=== PATIENT | male | born 1945 | race Hispanic/Latino ===

== ENCOUNTER 2024-08-24 20:50 | Observation (INO) | payer OTHER ==
[~2024-08-24] VITALS: Ht 175.3 cm; Wt 81.6 kg
[~2024-08-24 20:50] MED LIST: DUTA0.5C37 PO; GLIP5TAB15 PO; IBUP-1493 PO; LOPE2CAP PO; METF-446 PO; PRAV40TA3 PO; SOLI5TAB6 PO; TAMS-55 PO
[2024-08-24] MEDS ORDERED: NITROGLYCERIN 0.4 MG SL TAB SL PRN (21:00)
[2024-08-24 21:09] LABS: BASOPHILS # (AUTO) 0.07 K/uL (0.00-0.20); BASOPHILS % (AUTO) 0.9 % (0.0-5.0); EOSINOPHILS # (AUTO) 0.15 K/uL (0.00-0.70); EOSINOPHILS % (AUTO) 1.9 % (0.0-8.0); HEMATOCRIT 42.4 % (42-54); IMMATURE GRANULOCYTE ABSOLUTE 0.03 K/uL (0-1); LYMPHOCYTES # (AUTO) 1.8 K/uL (1.0-4.8); LYMPHOCYTES % (AUTO) 23.6 % (21.0-51.0); MEAN CORPUSCULAR HEMOGLOBIN 31.3 pg (27.0-33.0); MEAN CORPUSCULAR HGB CONC 33.3 g/dL (32.0-36.0); MONOCYTES # (AUTO) 0.7 K/uL (0.1-1.0); MONOCYTES % (AUTO) 9.6 % (3.0-13.0); NEUTROPHILS # (AUTO) 4.9 K/uL (1.8-7.7); NEUTROPHILS % (AUTO) 63.6 % (40.0-77.0); PLATELET COUNT (AUTO) 202 K/uL (130-400); RED BLOOD CELL COUNT(AUTO) 4.51 MIL/uL (4.50-6.20); RED CELL DISTRIBUTION WIDTH 13.6 % (11.0-15.5); WHITE BLOOD COUNT (AUTO) 7.7 K/uL (4.8-10.8)
--- NOTE | 2024-08-24 21:16 | NUR ---
PATIENT STATES THAT CURRENTLY HE HAS NO CHEST PAIN, BUT DOES HAVE LEFT LEG NUMBESS. STATES HE DID WOKE UP AT 1 AM BECAUSE HIS GLUCOSE MONITOR BEEPED THAT HIS BLOOD SUGAR WAS AT 60MG/DL, AND AT THAT TIME HE FELT THE DISCOMFORT IN HIS CHEST AND THE NUMBNESS IN HID LEFT LEG. HE STATES THAT WHEN HE WOKE UP AT 8AM THE CHEST PAIN HAD SUBSIDED BUT STILL FELT THE LEFT LEG NUMBNESS, HE CONTINUES WITH THE NUMBNESS AT THIS TIME, BUT HIS CHEST PAIN HAS NOT RETURNED
[2024-08-24 21:19] LABS: CARBON DIOXIDE 29 mmol/L (21-32); CHLORIDE 101 mmol/L (101-111); GLOMERULAR FILTR. RATE CALC 77 mL/min (>90); GLUCOSE,RANDOM 179 mg/dL (70-105); SODIUM SERUM 139 mmol/L (136-145); UREA NITROGEN, BLOOD 26 mg/dL (7-18)
[2024-08-24 21:26] LABS: CREATINE KINASE, TOTAL 82 U/L (21-232)
[2024-08-24] MEDS: 0.9%NACL 1000ML 1,000 ML IV ONE (21:26)
[2024-08-24] MEDS: ASPIRIN 325MG TAB PO ONE (21:27)
[2024-08-24 21:31] LABS: B-TYPE NATRIURETIC PEPTIDE 37 pg/mL (0-100)
--- NOTE | 2024-08-24 21:35 | HMCIMG ---
INDICATION: chest pain TECHNIQUE: CHEST 1VW COMPARISON: None FINDINGS AND IMPRESSION: Prominent bilateral interstitial markings which may represent bronchitis or vascular congestion in the proper clinical setting. Cardiac silhouette is within normal limits. Mild degenerative changes of the spine. The visualized upper abdomen appears unremarkable.
--- NOTE | 2024-08-24 21:53 | ERN ---
ED Note History of Present Illness Stated Complaint: CHEST PAIN Chief Complaint: Chest Pain Time Seen by MD: 20:56 Dictation: This is a very pleasant 79-year-old male who comes into the ER complaining of left-sided precordial chest pain early this morning which lasted for a for a few minutes. He stated that last night after he went to bed he woke up at 1:00 a.m. as the glucose monitor was going off and his sugars were around 70. He ate something to improve his sugars. This morning when he woke up he felt left- sided chest pain radiating to the left arm. No history of any diaphoresis presyncopal or syncopal episodes but he did feel some palpitations and he also feels bounding pulsatile feeling in his left leg No nausea vomitings diarrhea hematemesis or melena he denied any shortness of breath. Never had any cardiac evaluation in the past Temperature 98.1 pulse 78 respirations 20 blood pressure 169/69 with a pulse oximetry of 98% on room air His chronic medical problems include diabetes mellitus, high cholesterol, hypertension, BPH. Allergies: Coded Allergies: No Known Drug Allergies (Unverified Allergy, Unknown, 07/08/23) Home Meds Reported Medications Ibuprofen (Motrin/Advil) 800 Mg Tab, 800 MG PO TIDP PRN for PAIN, TAB 07/11/23 Solifenacin Succinate (Solifenacin Succinate) 5 Mg Tablet, 5 MG PO DAILY, TAB 07/08/23 Loperamide HCl (Loperamide) 2 Mg Capsule, 2 MG PO QIDP PRN for DIARRHEA, CAP 07/08/23 Tamsulosin HCl (Flomax) 0.4 Mg Cap.er.24h, 0.4 MG PO HS, CAPSULE.DR 07/08/23 Dutasteride (Dutasteride) 0.5 Mg Capsule, 0.5 MG PO HS, CAP 07/08/23 Glipizide (Glipizide) 5 Mg Tablet, 5 MG PO DAILY, TAB 07/08/23 Metformin HCl (Metformin HCl) 1,000 Mg Tablet, 1000 MG PO BID, TAB 07/08/23 Pravastatin Sodium (Pravastatin Sodium) 40 Mg Tablet, 40 MG PO DAILY, TAB 07/08/23 Past Medical History Past Medical History: Diabetes-Type II, High Cholesterol, Hypertension, Other Additional Past Medical Hx: PROSTATE Surgical History: Unknown Family History: Negative Social History: Negative RN Note Reviewed/Agreed w/PFSH: Yes Review of System Dictation Constitutional: Negative for fever,chills, and weight loss Eyes: Negative for injury, pain,redness, and discharge ENT: Negative for injury,pain or swelling Cardiovascular: Positive for left side chest pain, palpitations, and edema Respiratory: Negative for shortness of breath, cough, and wheezing, Abdomen/GI: Negative for abdominal pain, nausea, vomiting, diarrhea, and constipation Back: Negative for injury and pain : Negative for injury, bleeding and discharge MS/Extremity: Negative for injury and deformity Skin: Negative for rash, and discoloration Neuro: Negative for headache, weakness, numbness, tingling, and seizure Psych: Negative for suicide ideation, homicidal ideation, and hallucinations Initial Vital Sign VS Vital Signs Date Time Temp Pulse Resp B/P (MAP) Pulse Ox O2 Delivery O2 Flow Rate FiO2 08/24/24 20:52 98.1 78 20 169/69 98 Room Air 08/24/24 21:11 0 21 Physical Exam Dictation General: awake, alert, NAD Head/Face: Normocephalic, atraumatic Eyes: PERRL, EOMI, vision at baseline ENT: oral cavity clear, TMs clear, no signs of infection Neck: Trachea midline, supple, no nuchal rigidity Cardiovascular: RRR, normal S1/S2, No MRGs, no JVD Respiratory: CTAB, no respiratory distress, No rales or wheezes Abdomen: Soft, non-tender, non-distended, normal bowel sounds, no guarding or rebound. Skin: Warm, dry, normal turgor, no rash MS/Extremity: Pulses equal, no cyanosis, neurovascular intact, FROM Neuro: COAx4, GCS 15, strength 5/5, CN 2-12 intact, normal cerebellar exam, normal gait, Psych: Normal behavior, mood, and affect normal Extremities-trace edema without any palpable cords, Homans sign is negative Results (Laboratory/Radiology) Laboratory/Radiology Laboratory Tests Test 08/24/24 21:03 White Blood Count 7.7 K/uL (4.8-10.8) Red Blood Count 4.51 MIL/uL (4.50-6.20) Hemoglobin 14.1 g/dL (14.0-18.0) Hematocrit 42.4 % (42-54) Mean Corpuscular Volume 94.0 fL (79-99) Mean Corpuscular Hemoglobin 31.3 pg (27.0-33.0) Mean Corpuscular Hemoglobin Concent 33.3 g/dL (32.0-36.0) Red Cell Distribution Width 13.6 % (11.0-15.5) Platelet Count 202 K/uL (130-400) Mean Platelet Volume 10.7 fL (7.5-10.5) H Immature Granulocyte % (Auto) 0.4 % (0-1) Neutrophils (%) (Auto) 63.6 % (40.0-77.0) Lymphocytes (%) (Auto) 23.6 % (21.0-51.0) Monocytes (%) (Auto) 9.6 % (3.0-13.0) Eosinophils (%) (Auto) 1.9 % (0.0-8.0) Basophils (%) (Auto) 0.9 % (0.0-5.0) Neutrophils # (Auto) 4.9 K/uL (1.8-7.7) Lymphocytes # (Auto) 1.8 K/uL (1.0-4.8) Monocytes # (Auto) 0.7 K/uL (0.1-1.0) Eosinophils # (Auto) 0.15 K/uL (0.00-0.70) Basophils # (Auto) 0.07 K/uL (0.00-0.20) Absolute Immature Granulocyte (auto 0.03 K/uL (0-1) Nucleated Red Blood Cells 0.0 % (0.0-0.19) Sodium Level 139 mmol/L (136-145) Potassium Level 4.0 mmol/L (3.5-5.1) Chloride Level 101 mmol/L (101-111) Carbon Dioxide Level 29 mmol/L (21-32) Blood Urea Nitrogen 26 mg/dL (7-18) H Creatinine 1.0 mg/dL (0.5-1.3) Glomerular Filtration Rate Calc 77 mL/min (>90) Random Glucose 179 mg/dL (70-105) H Total Calcium 8.9 mg/dL (8.5-10.1) Total Creatine Kinase 82 U/L (21-232) Troponin I High Sensitivity < 4.0 ng/L (4-75) L B-Type Natriuretic Peptide 37 pg/mL (0-100) Labs Reviewed?: Yes EKG Comment: Twelve lead EKG done on 08/24/2024 at 8:52 p.m. showed a heart rate of 78, CA interval 74, QRS 88, QT/QTC 386/439. Impression normal sinus rhythm with nonspecific ST-T changes noted. EKG rhythm strip showed a normal sinus rhythm with nonspecific ST-T changes. Interpreted by ER MD Dr. Cunningham X-RAY Comment: REASON: chest pain ORDERING PHYSICIAN: MIGUELANGEL CUNNINGHAM MD PROCEDURE: CXR1VW - CHEST 1VW INDICATION: chest pain TECHNIQUE: CHEST 1VW COMPARISON: None FINDINGS AND IMPRESSION: Prominent bilateral interstitial markings which may represent bronchitis or vascular congestion in the proper clinical setting. Cardiac silhouette is within normal limits. Mild degenerative changes of the spine. The visualized upper abdomen appears unremarkable. DICTATED BY: CINTIA ENAMORADO MD DATE: 08/24/242131 ELECTRONICALLY SIGNED BY: CINTIA ENAMORADO MD DATE: 08/24/242134 ED Course ED Course Orders Procedure Category Date Status Time Vital Signs Per CPOE 08/24/24 Transmitted Routine 20:59 B-Type Natriuretic LAB 08/24/24 Complete Peptide 20:59 12 Lead Ekg Tracing- EKG 08/24/24 Logged Technical 20:59 Oxygen By Nc/Pulse Ox CPOE 08/24/24 Transmitted 20:59 Maintain Iv CPOE 08/24/24 Transmitted 20:59 Iv Insertion CPOE 08/24/24 Transmitted 20:59 Cardiac Monitoring CPOE 08/24/24 Transmitted 20:59 Pulse Oximetry With CPOE 08/24/24 Transmitted Vs And Prn 20:59 Cbc With Differential LAB 08/24/24 Complete 20:59 Activity: Br W/Brp CPOE 08/24/24 Transmitted With Assist 20:59 Urinalysis Profile LAB 08/24/24 Logged 20:59 Basic Metabolic Panel LAB 08/24/24 Complete 20:59 Chest 1vw RAD 08/24/24 Resulted 20:59 12 Lead Ekg Tracing- EKG 08/24/24 Logged Technical 20:59 0.9%Nacl 1000ml (Ns PHA 08/24/24 In Process 1000ml) 21:00 Nitroglycerin 0.4mg PHA 08/24/24 In Process Sl Tab (Nitrostat) 21:00 Aspirin 325mg Tab PHA 08/24/24 Complete (Aspirin 325mg Tab) 21:00 Cardiac Panel LAB 08/24/24 Complete 21:03 Current Medications Medications (Trade) Dose Ordered Sig/Sarah Route PRN Reason Start Time Stop Time Status Last Admin Dose Admin Aspirin (Aspirin 325mg Tab) 325 mg ONCE ONCE PO 08/24/24 21:00 08/24/24 21:02 DC 08/24/24 21:27 Nitroglycerin (Nitrostat) 0.4 mg Q5M PRN SL CHEST PAIN 08/24/24 21:00 Sodium Chloride 1,000 ml @ 125 mls/hr ONCE ONCE IV 08/24/24 21:00 08/25/24 04:59 08/24/24 21:26 Vital Signs Date Time Temp Pulse Resp B/P (MAP) Pulse Ox O2 Delivery O2 Flow Rate FiO2 08/24/24 21:11 98.4 74 18 161/74 98 Room Air* 0 21 08/24/24 20:52 98.1 78 20 169/69 98 Room Air We will perform diagnostic labs, advanced imaging and administer medications according to the patient's complaint. Once the results are available, will review and personally interpreted the labs to rule out any acute life- threatening emergency the trach require immediate intervention and treatment. I will then re-evaluate the patient after treatment and diagnostic exams have return to determine whether the patient requires any further testing, can safely be discharged home or need further admission to hospital for additional arianna tment and evaluation. Labs reviewed CBC is with a normal limits BNP 7 showed a BUN and creatinine of 26 and 1.0 with a glucose of 179 CK 82 1st set of troponins was negative. 9:49 p.m. I had a long discussion with the patient's spouse and patient about multiple risk factors at his advanced age for ischemic heart disease and I recommended admission to the hospital for further cardiac evaluation including echocardiogram and stress test as deemed appropriate. Both are agreeable 10:18 p.m. patient accepted by [facility] mid-level provider for [facility] for admission for chest pain concerning for cardiac etiology. HEART Score Response (Comments) Value History: Moderate suspicion (+1) 1 EKG: Repolarization changes 1 Age: > 65yrs (+2) 2 Risk Factors: 3+ risk factors (+2) 2 Initial Troponin: Normal limit (0) 0 HEART Score Risk: Mod Risk for MACE (4-6) Total 6 Medical Decision Making MDM MDM: Differential diagnosis: Precordial chest pain-with multiple risk factors at his advanced age, patient needs evaluation for coronary artery disease and at this time ACS, unstable angina, non-STEMI are all considered in the differential. He does not have any reproducibility Rationale: Tests considered and ordered secondary to shared decision making include: labs, ECG and radiology Previous outside records reviewed: Old ER visits. Risk of complication and/or morbidity or mortality of patient management: None Medications-Per medication reconciliation Need for hospitalization: Patient does meet criteria for hospitalization. Need for emergency major/minor surgery: No There are no social concerns with this patient. Prescription drug management Prescriptions will include symptomatic care Patient's prior external medical records from other ER visits were reviewed by me as indicated. Prior testing and results from previous visits were reviewed. Prior tests were taken into account with medical decision making and resource utilization, independent historian/historians were used to obtain complete medical history. I independently interpreted the test that were performed, results were reviewed by me and considered findings on radiology if ordered. Medical management and examination interpretation discussions were had by me with other qualified healthcare professionals as indicated for the patient's care. Problem List Problem List: (1) Intermittent left-sided chest pain (2) Diabetes mellitus (3) Hypertension (4) Hypercholesterolemia DX & DISP Disposition: Inpatient Decision to Admit Time: 21:50 Departure Impression: Primary Impression: Intermittent left-sided chest pain Additional Impressions: Diabetes mellitus, Hypertension, Hypercholest erolemia Condition: Stable Additional Instructions: Patient was informed of all the diagnostic labs and procedures conducted in the emergency room today and demonstrated understanding of the results. Snow morton reviewed and interpreted all the diagnostic exams performed in the ER today. The patient will be admitted to the hospital for further treatment and evaluation. Disposition-admit to facility Condition-stable/guarded Course-uncertain at this time Pain status-decreased Assessment-exam unchanged Admission Certification- I certify that the patients status is appropriate and is based on my best clinical judgment and the patient's condition as documented in the medical records Referrals: ROSIO FERREIRA MD (PCP) MIGUELANGEL CUNNINGHAM MD Aug 24, 2024 21:53
[2024-08-24 23:10] LABS: APPEARANCE,URINE CLEAR (CLEAR); BILIRUBIN,URINE NEGATIVE (NEGATIVE); COLOR,URINE LIGHT-YELLOW (YELLOW); GLUCOSE, URINE (UA) 500 mg/dL (NEGATIVE); KETONES,URINE NEGATIVE (NEGATIVE); LEUKOCYTE ESTERASE ,URINE NEGATIVE Leu/uL (NEGATIVE); MUCUS,URINE RARE LPF (None Seen); NITRATE,URINE NEGATIVE (NEGATIVE); OCCULT BLOOD,URINE NEGATIVE (NEGATIVE); PH,URINE 5.5 (5.0-8.0); PROTEIN,URINE NEGATIVE (NEGATIVE); SQUAMOUS EPITHELIAL CELL,UR RARE /HPF (0-2); UROBILINOGEN,URINE 0.2 mg/dL (0.2-1.0); WBC,URINE 0-1 /HPF (0-1)
--- NOTE | 2024-08-24 23:15 | HP ---
[facility] HISTORY & PHYSICAL Date Patient Seen: Aug 24, 2024 Time of Visit: 23:08 Supervising Physician: Dr Sandie Schofield Primary Care Physician: Dr Ziegler Outpatient Specialists: [ ] Inpatient Consults: [ ] PROBLEM LIST: ACS, POA Acute hyperglycemia, POA Hypertension, POA Hyperlipidemia, POA DM type 2, POA PLAN: Admit to medical-surgical floor with telemetry VS per unit protocol Continue cardiac monitoring ISS and fingerstick per unit protocol Keep systolic blood pressure less than 160 P.r.n. hydralazine and labetalol Keep serum glucose less than 150 Stat EKG and troponin level of with chest pain Bilateral SCDs Up ad ronnie Consistent carb diet CBC, CMP, magnesium level daily HPI: 79-year-old male with past medical history of DM type 2, hypertension, hyperlipidemia who presented to ED via private vehicle with complaint of left- sided chest pain and found to have possible ACS. Patient was seen and examined in ED with present at bedside. Patient is Niuean-speaking only however bedside nurses able to translate during evaluation. According to the patient who woke up around 1:00 a.m. this morning because his glucose monitor SBP and stating his sugar was in the 70s. Afterwards patient developed chest pain, mostly on the left with no associated palpitation, dizziness, or nausea or vomiting. Patient then presented to ED for further medical evaluation. In ED stat chest x-ray was done showed prominent interstitial markings, his CBC unrevealing for any acute infection or anemia. His chemistry did not reveal any acute electrolyte or kidney dysfunction. His initial troponin level was also normal as well as unremarkable BNP. At present patient is currently hemodynamically stable, GCS 15, afebrile, chest pain-free, not in acute respiratory distress. Denies any headache, chest pain, shortness of breath, abdominal pain, fever flu-like symptoms, or difficulty urinating. Patient denies any smoking, drinks occasionally, and denies illicit drug use. PAST MEDICAL HX: see above PAST SURGICAL HX: noncontributory SOCIAL HISTORY: No tobacco, ETOH, or illicit drug use Coded Allergies: No Known Drug Allergies (Unverified Allergy, Unknown, 07/08/23) REVIEW OF SYSTEMS: 12 point ROS reviewed with patient. Pertinent positives mentioned above. Otherwise negative. PHYSICAL EXAM: GENERAL: alert, weak, awake oriented x 3 HEENT: EOMI, Sclera non icteric, moist mucosa NECK: Supple, no JVD, trachea midline LUNGS: Clear breath sounds bilaterally. No wheezes HEART: Regular rate and rhythm. Normal S1 and S2, without murmurs ABD: Abdomen soft, nontender. Bowel sounds present EXT: No clubbing cyanosis or edema NEURO: Alert and oriented to person, follows commands Vital Signs (last 8hr) Date Time Temp Pulse Resp B/P (MAP) Pulse Ox O2 Delivery O2 Flow Rate FiO2 08/24/24 22:00 98.8 86 18 156/79 98 Room Air* 0 21 08/24/24 21:11 98.4 74 18 161/74 98 Room Air* 0 21 08/24/24 20:52 98.1 78 20 169/69 98 Room Air LABS: Hematology Labs: Test 08/24/24 21:03 Range/Units White Blood Count 7.7 4.8-10.8 K/uL Red Blood Count 4.51 4.50-6.20 MIL/uL Hemoglobin 14.1 14.0-18.0 g/dL Hematocrit 42.4 42-54 % Mean Corpuscular Volume 94.0 79-99 fL Mean Corpuscular Hemoglobin 31.3 27.0-33.0 pg Mean Corpuscular Hemoglobin Concent 33.3 32.0-36.0 g/dL Red Cell Distribution Width 13.6 11.0-15.5 % Platelet Count 202 130-400 K/uL Mean Platelet Volume 10.7 H 7.5-10.5 fL Immature Granulocyte % (Auto) 0.4 0-1 % Neutrophils (%) (Auto) 63.6 40.0-77.0 % Lymphocytes (%) (Auto) 23.6 21.0-51.0 % Monocytes (%) (Auto) 9.6 3.0-13.0 % Eosinophils (%) (Auto) 1.9 0.0-8.0 % Basophils (%) (Auto) 0.9 0.0-5.0 % Neutrophils # (Auto) 4.9 1.8-7.7 K/uL Lymphocytes # (Auto) 1.8 1.0-4.8 K/uL Monocytes # (Auto) 0.7 0.1-1.0 K/uL Eosinophils # (Auto) 0.15 0.00-0.70 K/uL Basophils # (Auto) 0.07 0.00-0.20 K/uL Absolute Immature Granulocyte (auto 0.03 0-1 K/uL Nucleated Red Blood Cells 0.0 0.0-0.19 % Chemistry Labs: Test 08/24/24 21:03 Range/Units Sodium Level 139 136-145 mmol/L Potassium Level 4.0 3.5-5.1 mmol/L Chloride Level 101 101-111 mmol/L Carbon Dioxide Level 29 21-32 mmol/L Blood Urea Nitrogen 26 H 7-18 mg/dL Creatinine 1.0 0.5-1.3 mg/dL Glomerular Filtration Rate Calc 77 >90 mL/min Random Glucose 179 H 70-105 mg/dL Total Calcium 8.9 8.5-10.1 mg/dL Total Creatine Kinase 82 21-232 U/L Troponin I High Sensitivity < 4.0 L 4-75 ng/L B-Type Natriuretic Peptide 37 0-100 pg/mL DIAGNOSTICS / RADIOLOGY RESULTS: INDICATION: chest pain TECHNIQUE: CHEST 1VW COMPARISON: None FINDINGS AND IMPRESSION: Prominent bilateral interstitial markings which may represent bronchitis or vascular congestion in the proper clinical setting. Cardiac silhouette is within normal limits. Mild degenerative changes of the spine. The visualized upper abdomen appears unremarkable. PLAN NEURO: Minimize central acting medications as possible. Maintain fall precautions, adequate lighting during the day PULMONARY: Supplemental 02 as needed. Maintain aspiration precautions at all times CARDIOVASCULAR: Follow hemodynamics. Vital signs per facility protocol GI & NUTRITION: Continue with nutritional support. Continue stool softeners and laxatives as needed. KIDNEYS & ELECTROLYTES: Strict monitoring of intake, output and overall fluid balance. Avoid nephrotoxic medications to the extent possible. Medications to be dosed according to renal function. Monitor electrolytes and replace as needed ENDOCRINE: Maintain blood glucose between 100-180 at all times. Hypoglycemia protocol in place INFECTIOUS DISEASE: Trend temperature, WBC and procalcitonin level Follow cultures, deescalate antibiotics as soon as possible. Panculture if new onset fever ONCOLOGY/HEMATOLOGY/COAGULATION: Monitor for s/s of bleeding Monitor hemoglobin, coagulation studies as needed SKIN: Pressure ulcer prevention per facility protocol Specialty mattress ORTHO/REHAB: Continue PT/OT Prophylaxis: Continue GI and DVT prophylaxis Code Status: Full Resuscitation Disposition: TBD Other: Total patient care time exceeds 35 minutes excluding all procedures. Supervising physician: SELAM Colon M CHIEF OF SERVICE Aug 24, 2024 23:15
[2024-08-24] MEDS ORDERED: acetaMINOPHEN 325 MG TAB PO PRN (23:30)
[2024-08-24] MEDS ORDERED: ondanSETRON 4MG INJ IVP PRN (23:30)
[2024-08-24] MEDS ORDERED: acetaMINOPHEN 650 MG SUPPOSITORY RC PRN (23:30)
[2024-08-24] MEDS ORDERED: hydrALAZine 20MG/ML VIAL IV PRN (23:30)
[2024-08-24] MEDS ORDERED: LAbetaLOL 20MG SYG IV PRN (23:30)
[2024-08-24] MEDS ORDERED: HYDROcodone/APAP 5/325 1 TAB TABLET PO PRN ×2 (23:30)
[2024-08-25 06:59] LABS: BASOPHILS # (AUTO) 0.05 K/uL (0.00-0.20); BASOPHILS % (AUTO) 0.9 % (0.0-5.0); EOSINOPHILS % (AUTO) 3.7 % (0.0-8.0); HEMATOCRIT 39.7 % (42-54); IMMATURE GRANULOCYTE ABSOLUTE 0.01 K/uL (0-1); LYMPHOCYTES # (AUTO) 1.5 K/uL (1.0-4.8); LYMPHOCYTES % (AUTO) 27.9 % (21.0-51.0); MEAN CORPUSCULAR HEMOGLOBIN 30.6 pg (27.0-33.0); MEAN CORPUSCULAR HGB CONC 33.5 g/dL (32.0-36.0); MEAN CORPUSCULAR VOLUME 91.3 fL (79-99); MONOCYTES # (AUTO) 0.7 K/uL (0.1-1.0); MONOCYTES % (AUTO) 12.3 % (3.0-13.0); PLATELET COUNT (AUTO) 187 K/uL (130-400); RED BLOOD CELL COUNT(AUTO) 4.35 MIL/uL (4.50-6.20); RED CELL DISTRIBUTION WIDTH 13.2 % (11.0-15.5); WHITE BLOOD COUNT (AUTO) 5.4 K/uL (4.8-10.8)
[2024-08-25 07:23] LABS: CREATININE 0.8 mg/dL (0.5-1.3); PHOSPHORUS 2.9 mg/dL (2.5-4.9); POTASSIUM 3.7 mmol/L (3.5-5.1)
[2024-08-25] MEDS: INSULIN humuLIN R 100 UNIT/ML 3ML SQ SCH (07:30)
[2024-08-25] MEDS: ASCORBIC ACID 500 MG TAB PO SCH (10:00)
[2024-08-25] MEDS: FAMOTIDINE 20MG TAB PO SCH (10:00)
[2024-08-25] MEDS: ENOXAPARIN SODIUM 40 MG/0.4 ML SYRINGE SQ SCH (10:01)
[2024-08-25] MEDS: polyETHYLene GLYCol 3350 17 GM POWD.PACK PO SCH (10:01)
--- NOTE | 2024-08-25 15:31 | DS ---
[facility] DISCHARGE SUMMARY Date Patient Seen: Aug 25, 2024 Time of Visit: 15:30 Supervising Physician: Dr. Tavo Martin Primary Care Physician: Dr Ziegler Outpatient Specialists: [ ] Inpatient Consults: [ ] HOSPITAL COURSE: HPI (per admitting provider) 79-year-old male with past medical history of DM type 2, hypertension, hyperlipidemia who presented to ED via private vehicle with complaint of left- sided chest pain and found to have possible ACS. Patient was seen and examined in ED with present at bedside. Patient is Anguillan-speaking only however bedside nurses able to translate during evaluation. According to the patient who woke up around 1:00 a.m. this morning because his glucose monitor SBP and stating his sugar was in the 70s. Afterwards patient developed chest pain, mostly on the left with no associated palpitation, dizziness, or nausea or vomiting. Patient then presented to ED for further medical evaluation. In ED stat chest x-ray was done showed prominent interstitial markings, his CBC unrevealing for any acute infection or anemia. His chemistry did not reveal any acute electrolyte or kidney dysfunction. His initial troponin level was also normal as well as unremarkable BNP. At present patient is currently hemodynamically stable, GCS 15, afebrile, chest pain-free, not in acute respiratory distress. Denies any headache, chest pain, shortness of breath, abdominal pain, fever flu-like symptoms, or difficulty urinating. Patient denies any smoking, drinks occasionally, and denies illicit drug use. The patient was treated for the following problems: Patient evaluated at bedside following cardiac workup, patient's troponins remained negative with 12 hours space between testing, BNP negative for elevated findings. Patient was remained on room air, with no reproducible pain at this time. Patient's D-dimer also negative for high-risk of PE. EKG showed no acute findings. At this time patient has been cleared for discharge to follow up as outpatient with Cardiology as he has no history of acute coronary syndrome to date. Patients cardiac workup has remained negative with no rise in troponins over a 12 hour course. DDimer WNL, low risk for PE, no reproducible pain on admission. Pt clear for discharge to [facility] was outpatient with PCP and Cardiology. ACTIVE PROBLEM LIST FOR THE HOSPITALIZATION: ACS, POA Acute hyperglycemia, POA CHRONIC PROBLEMS: continue previous management per PCP unless otherwise indicated Hypertension, POA Hyperlipidemia, POA DM type 2, POA [employer]IST FINDINGS/RECOMMENDATIONS: [ ] PROCEDURES: as mentioned above DISCHARGE MEDICATIONS: Pt hemodynamically stable and afebrile at time of discharge. PCP notified of patients admission, hospital course and discharge. PHYSICAL EXAM: GENERAL: alert, weak, awake oriented x 3 HEENT: EOMI, Sclera non icteric, moist mucosa NECK: Supple, no JVD, trachea midline LUNGS: Clear breath sounds bilaterally. No wheezes HEART: Regular rate and rhythm. Normal S1 and S2, without murmurs ABD: Abdomen soft, nontender. Bowel sounds present EXT: No clubbing cyanosis or edema NEURO: Alert and oriented to person, follows commands FOLLOW-UP: Follow-up with PCP in 2-3 days RECOMMENDATIONS: See Discharge Instructions This case was seen and discussed with my supervising physician. More than 30 minutes spent on discharge process, including evaluation of the patient, discuss ion with nursing staff, medication reconciliation and follow-up appointments KYLE JEFFERY Aug 25, 2024 15:31
--- NOTE | 2024-08-25 16:42 | EKG ---
[facility] Test Date: 2024-08-25 Test Time: 11:43:36 Pat Name: SHINE BARRIGA Department: EDHIP Room: ED 12 Gender: M Tip Mender: [id number] : 1945 Requested By: DINO BARRIGA Order Number: [id number] Reading MD: Marshall Masterson Measurements Intervals Walker Rate: 69 P: 99 MT: 184 QRS: 30 QRSD: 91 T: 48 QT: 381 QTc: 410 Interpretive Statements Sinus rhythm Compared to ECG 07/11/2023 11:49:19 No significant changes Electronically Signed On 08-26-2024 17:25:59 CDT by Marshall Masterson Please click the below link to view image of tracing.
--- NOTE | 2024-08-25 16:43 | EKG ---
[facility] Test Date: 2024-08-24 Test Time: 20:52:52 Pat Name: SHINE BARRIGA Department: EDHIP Room: ED 12 Gender: M Coding Director: [id number] : 1945 Requested By: MIGUELANGEL FORRESTER Order Number: [id number] Reading MD: Marshall Masterson Measurements Intervals [place] Rate: 78 P: 0 AL: 74 QRS: 42 QRSD: 88 T: 46 QT: 386 QTc: 439 Interpretive Statements Sinus rhythm Compared to ECG 07/11/2023 11:49:19 No significant changes Electronically Signed On 08-26-2024 17:25:34 CDT by Marshall Masterson Please click the below link to view image of tracing.
--- NOTE | 2024-08-25 17:45 | NUR ---
DR CEDILLO AT BEDSIDE
[2024-08-25 17:56] VITALS: BP 135/73; PULSE 64; RESP 18; TEMP 98.4; O2SAT 98
== END 2024-08-25 17:50 | disposition home or self-care (01) ==
LOC: EDH 20:50 → EDHIP 20:51 → INTOOBSV 23:02 → UNDOADMOB 23:02 → EDHIP 23:02
PROVIDERS: ADMIT Internal Medicine Critical Care Medicine; ATTEND Internal Medicine Critical Care Medicine
DX: I24.9 Acute ischemic heart disease, unspecified (principal); E11.65 Type 2 diabetes mellitus with hyperglycemia; E78.00 Pure hypercholesterolemia, unspecified; I10 Essential (primary) hypertension; Z98.890 Other specified postprocedural states; Z79.899 Other long term (current) drug therapy
CPT/HCPCS: 99285; 82550; 84484 ×2; 80048 ×2; 83880; 85025 ×2; 81001; 36415 ×2; 71045; 93005 ×2; 96372; 83735; 84100; 85378; 82948 ×3; G0378 ×19; J7030; J1650